=== PATIENT | male | born 1985 | race Caucasian/White ===

== ENCOUNTER 2019-07-12 17:41 | Emergency (ER) | payer SELFPAY ==
[2019-07-12 17:53] VITALS: BP 144/84
--- NOTE | 2019-07-12 18:04 | UC ---
Palpitation/Dysrhythmia HP - HPI Summary HPI Summary: 33-year-old male presents with concern for a panic attack. States approximately 20 minutes prior to arrival he developed a sudden feeling that his heart was racing, and some tingling in his fingers, and was feeling very anxious. Reports had a similar episode that happened approximately one week ago that lasted for almost 2 hours. Sister has history of panic attacks. States prior to a week ago he was drinking coffee quite regularly throughout the day cut back to 1 or 2 cups a day after his first episode. Patient smokes cigars daily and reports smoking marijuana several times a day. Denies any other illicit drug use. Occasionally drinks alcohol. Denies any feelings of depression or sadness. No suicidal or homicidal ideations. Denies fever, chills, dizziness, lightheadedness, chest pain, shortness of breath, diaphoresis , nausea, or vomiting. - History of Current Complaint Chief Complaint: UCGeneralIllness Stated Complaint: ANXIETY Hx Obtained From: Patient Pain Intensity: 0 - Allergy/Home Medications Allergies/Adverse Reactions: Allergies Allergy/AdvReac Type Severity Reaction Status Date / Time No Known Allergies Allergy Verified 07/12/19 17:54 PMH/Surg Hx/FS Hx/Imm Hx Previously Healthy: Yes - Denies significant PMH - Surgical History Surgical History: Yes Surgery Procedure, Year, and Place: tonsilectomy - Family History Family History: Anxiety disorder - sister - Social History Occupation: Student Lives: Dormitory/Roommates Alcohol Use: Occasionally Substance Use Type: Marijuana Smoking Status (MU): Light Every Day Tobacco Smoker Type: Cigars Length of Time of Smoking/Using Tobacco: 14 years Have You Smoked in the Last Year: Yes Review of Systems All Other Systems Reviewed And Are Negative: Yes Constitutional: Negative: Fever, Chills Eyes: Negative: Blurred Vision, Diplopia, Photophobia ENT: Positive: Negative Respiratory: Negative: Shortness Of Breath Cardiovascular: Positive: Palpitations - See HPI. Negative: Chest Pain Genitourinary: Positive: Negative Musculoskeletal: Positive: Negative Neurological/Mental Status: Negative: Headache, Weakness, Paresthesia, Numbness Is Patient Immunocompromised?: No Physical Exam - Summary Physical Exam Summary: GENERAL APPEARANCE: Well developed, well nourished, alert and cooperative, and appears to be in no acute distress. EYES: Conjunctiva clear. No drainage. EARS: External auditory canals and tympanic membranes clear, hearing grossly intact. NOSE: No nasal discharge. THROAT: Pharynx normal. Surgically absent tonsils. Uvula midline. NECK: Neck supple, non-tender without lymphadenopathy. CARDIAC: Normal S1 and S2. No S3, S4 or murmurs. Rhythm is regular. There is no peripheral edema, cyanosis or pallor. Extremities are warm and well perfused. Capillary refill is less than 2 seconds. Peripheral pulses intact. LUNGS: Clear to auscultation without rales, rhonchi, wheezing or diminished breath sounds. ABDOMEN: Positive bowel sounds. Soft, nondistended, nontender. No guarding or rebound. No masses or hepatosplenomegally. MUSKULOSKELETAL: ROM intact to all extremities. No joint erythema or tenderness. Normal muscular development. Normal gait. SKIN: Skin normal color, texture and turgor with no lesions or eruptions. PSYCHIATRIC: The patient was able to demonstrate good judgement and reason, without hallucinations, abnormal affect or abnormal behaviors during the examination. Patient is not suicidal. Triage Information Reviewed: Yes Vital Signs: Initial Vital Signs Temp 98 F 07/12/19 17:49 Pulse 100 07/12/19 17:49 Resp 16 07/12/19 17:49 BP 144/84 07/12/19 17:49 Pulse Ox 100 07/12/19 17:49 Vital Signs Reviewed: Yes Diagnostics - EKG Cardiac Rate: NL - Rate 77 Cardiac Rhythm: Sinus: Normal Ectopy: None ST Segment: Normal Palpitations Course/Dx - Course Course Of Treatment: 33-year-old male presents with concern for a panic attack. States approximately 20 minutes prior to arrival he developed a sudden feeling that his heart was racing, and some tingling in his fingers, and was feeling very anxious. Reports had a similar episode that happened approximately one week ago that lasted for almost 2 hours. Sister has history of panic attacks. States prior to a week ago he was drinking coffee quite regularly throughout the day cut back to 1 or 2 cups a day after his first episode. Patient smokes cigars daily and reports smoking marijuana several times a day. Denies any other illicit drug use. Occasionally drinks alcohol. Denies any feelings of depression or sadness. No suicidal or homicidal ideations. Denies fever, chills, dizziness, lightheadedness, chest pain, shortness of breath, diaphoresis , nausea, or vomiting. Afebrile. Hypertensive with a mild tachycardia at a rate of 100 otherwise vital signs were stable. Patient's exam was overall unremarkable. 12-lead EKG showed a normal sinus rhythm at a rate of 77 without ectopy, ST elevation, or T-wave abnormalities. I discussed with the patient that his symptoms do seem to be consistent with an anxiety disorder however I cannot rule out other medical causes this time. I have strongly encouraged him to abstain from caffeine, nicotine, and marijuana as this could be contributing factors to his symptoms. I have also encouraged him to seek counseling. I will provide him with a prescription for hydroxyzine 50 mg every 6 hours as needed for anxiety. He is to follow-up at the [facility] within 7 days for further evaluation and follow-up. I have also provided him with the contact information for the [facility] physician referral service that he can establish with a primary care provider locally. Anticipatory guidance and warning symptoms requiring immediate evaluation in the emergency room were reviewed with the patient. Verbalizes understanding and agrees with plan of care. - Differential Dx/Diagnosis Differential Diagnosis/HQI/PQRI: Medication Induced, Mitral Valve Prolapse, Panic Disorder, Paroxymal SVT Provider Diagnosis: Palpitations Discharge ED - Sign-Out/Discharge Documenting (check all that apply): Patient Departure All imaging exams completed and their final reports reviewed: No Studies - Discharge Plan Condition: Stable Disposition: HOME Prescriptions: hydrOXYzine HCL [Hydroxyzine HCl] 50 mg PO Q6HR PRN #14 tablet PRN Reason: Anxiety Patient Education Materials: Heart Palpitations (ED) Referrals: [facility] PHYSICIAN REFERRAL [Outside] [facility] [Outside] - 7 Days (Call for an appointment.) Additional Instructions: The EKG that was performed in the clinic today was normal however I cannot fully exclude the possibility that your symptoms are from an irregular heart rhythm at this time. I suspect that your symptoms are related to anxiety however it is important that she was establish with a primary care provider to have possible medical causes of your symptoms ruled out. I will provide you with a prescription for a medication that may help if this is caused by anxiety. Take hydroxyzine 50 mg every 6 hours as needed for anxiety. I would encourage you to minimize your caffeine and nicotine use as these can worsen your symptoms. I would also recommend not using marijuana any longer as this could also be contributing to your symptoms. You have been provided information for some of the mental health services locally. I would encourage you to consider seeking counseling services. Follow up at the [facility] for further evaluation of your symptoms. Call first thing Sunday morning for an appointment. I have also provided you with the contact information for the [facility] physician referral service if you need assistance with establishing with a primary care provider locally. Seek immediate medical attention in the emergency room if you develop chest pain , you have a persistent feeling that she or heart is racing or skipping beats, you have shortness of breath, dizziness, or any worsening of symptoms. - Billing Disposition and Condition Condition: STABLE Disposition: Home
== END 2019-07-12 18:43 | disposition home or self-care (01) ==
LOC: UCCORT 17:41
DX: R00.2 Palpitations (principal); I10 Essential (primary) hypertension; F41.9 Anxiety disorder, unspecified; R00.0 Tachycardia, unspecified; F17.290 Nicotine dependence, other tobacco product, uncomplicated
CPT/HCPCS: 93005; 99202; G0463